=== PATIENT | male | born 1965 | race Caucasian/White ===

== ENCOUNTER → 2021-11-22 | Outpatient (CLI) | payer OTHER ==
[~2021-11-22] MED LIST: GADOTERATE 5 MMOL/10ML VIAL. INT ART ONE; IOHEXOL 300 MG/ML 50 ML VIAL. INT ART ONE; LIDOCAINE 1% Multi-Dose 20 ML VIAL. ID ONE
--- NOTE | 2021-11-22 15:38 | KCIC ---
Left wrist injection under fluoroscopy to facilitate a MR arthrogram 11/22/2021 CLINICAL HISTORY: Left wrist pain. TECHNIQUE: After the risks and benefits of the procedure were explained to the patient, [facility] was obtained. The posterior aspect of the left wrist was prepped and draped in sterile fa shion. 1 percent lidocaine was used as local anesthetic. Under fluoroscopic guidance a 25-gauge needl e was placed into the left radiocarpal joint. Intra-articular position of the needle was confirmed by injecting 1 cc of Omnipaque 300. Following this 4 cc of a solution (containing 5 cc of 1 percent lid ocaine, 15 cc of normal saline and 0.1 cc of Clariscan) were injected through the needle under fluoro scopic control. Following this the needle was removed and hemostasis achieved at this puncture site. A sterile bandage was placed on the skin puncture site. The patient tolerated the procedure well ther e were no immediate complications. The patient was taken to MRI for further imaging. The total fluoro scopic time for this study was 17 seconds. A single fluoroscopically captured AP digital radiograph o f the left wrist was obtained. FINDINGS: Contrast is seen opacifying the radiocarpal joint. No extension of contrast into the midcar pal joint or distal radioulnar joint is seen. IMPRESSION: Technically successful fluoroscopically guided injection of the left radiocarpal joint to facilitate a MR arthrogram as discussed above. Electronically signed by: Jama Aquino MD (11/22/2021 3:36 PM) [id number]
--- NOTE | 2021-11-25 09:10 | KCIC ---
Left wrist injection under fluoroscopy to facilitate a MR arthrogram 11/22/2021 CLINICAL HISTORY: Left wrist pain. TECHNIQUE: After the risks and benefits of the procedure were explained to the patient, written [facility] consent was obtained. The posterior aspect of the left wrist was prepped and draped in sterile fa shion. 1 percent lidocaine was used as local anesthetic. Under fluoroscopic guidance a 25-gauge needl e was placed into the left radiocarpal joint. Intra-articular position of the needle was confirmed by injecting 1 cc of Omnipaque 300. Following this 4 cc of a solution (containing 5 cc of 1 percent lid ocaine, 15 cc of normal saline and 0.1 cc of Clariscan) were injected through the needle under fluoro scopic control. Following this the needle was removed and hemostasis achieved at this puncture site. A sterile bandage was placed on the skin puncture site. The patient tolerated the procedure well ther e were no immediate complications. The patient was taken to MRI for further imaging. The total fluoro scopic time for this study was 17 seconds. A single fluoroscopically captured AP digital radiograph o f the left wrist was obtained. FINDINGS: Contrast is seen opacifying the radiocarpal joint. No extension of contrast into the midcar pal joint or distal radioulnar joint is seen. IMPRESSION: Technically successful fluoroscopically guided injection of the left radiocarpal joint to facilitate a MR arthrogram as discussed above. Electronically signed by: Jama Aquino MD (11/22/2021 3:36 PM) [id number]
--- NOTE | 2021-11-25 11:39 | KCIC ---
EXAM: MRI LEFT WRIST DATE: 11/22/2021 2:05 PM CLINICAL HISTORY: Reason: Left wrist pain post fall. / Spl. Instructions: Pain w/flexion/extenison o f wrist post fall 08/02/21 / History: COMPARISON: None. TECHNIQUE: Multiplanar, multisequence MR imaging of the left wrist was performed following the admini stration of gadolinium contrast in the radiocarpal joint. FINDINGS: Iatrogenic distention of the radiocarpal joint with gadolinium contrast. Contrast is seen within the radiocarpal joint without midcarpal or distal radioulnar joint extension. There is diffuse thickening of the TFC disc without discrete tear of the TFC. Radial, foveal attachme nts are intact. There is likely a partial tear of the styloid attachments. The scapholunate and lunotriquetral ligaments are intact. T1 marrow signal is preserved. No fracture or osteonecrosis. Incidentally noted type II lunate. Articular cartilage is preserved. Visualized flexor and extensor tendons are intact. Fluid distention of the second and third extensor tendon compartments, iatrogenic given the gadolinium characteristic s. There is no abnormal bowing of the flexor retinaculum. Median nerve and ulnar nerve are normal in sig nal and morphology. IMPRESSION: 1. 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 However th ere is thickening of the ulnar styloid attachment, likely partial tear. 2. Contrast is seen within the midcarpal joint without discrete radial ulnar joint or midcarpal join t. Electronically signed by: Julian Zamora MD (11/25/2021 11:36 AM) [id number]
== END | disposition home or self-care (01) ==
LOC: KCIC 12:29
DX: M25.532 Pain in left wrist (principal); Z79.899 Other long term (current) drug therapy
CPT/HCPCS: 25246; 73222; 77002; A9575; J3490; Q9967